=== PATIENT | male | born 1965 | race Caucasian/White ===

== ENCOUNTER 2017-08-14 10:40 | Emergency (ER) | payer BC, OTHER ==
[2017-08-14] MEDS ORDERED: Sodium Chloride 0.9% 10 ML Syringe FLUSH PRN (10:51)
[2017-08-14 11:50] LABS: CHLORIDE,CL 105 mmol/L (98-107); SODIUM,NA 140 mmol/L (136-145)
[2017-08-14] MEDS ORDERED: Ketorolac 30 MG/ML SDV IVPUSH ONE (12:13)
--- NOTE | 2017-08-14 19:17 | EDM.PDOC ---
ED HPI GENERAL MEDICAL PROBLEM - General Chief Complaint: Chest Pain Stated Complaint: CHEST PAIN Time Seen by Provider: 08/14/17 10:49 Source of Information: Reports: Patient History Limitations: Reports: No Limitations - History of Present Illness INITIAL COMMENTS - FREE TEXT/NARRATIVE: Pt. presents to ER with anterior L sided chest pain. Pt. states that this discomfort was rapid on onset and respirophasic in nature. Denies any fever, chills, or dyspnea. He denies any shortness of breath. He states that the discomfort does not radiate elsewhere. He states that he has never experienced discomfort like this in the past. Denies any jaw, arm, neck or back pain. Denies any nausea or vomiting. States that he has not recently had a cough or chest congestion. Denies hemoptysis. Onset: Today Location: Reports: Chest Quality: Reports: Sharp, Stabbing Severity: Moderate Improves with: Reports: Rest Worsens with: Reports: Breathing, Movement Context: Reports: Activity Associated Symptoms: Reports: No Other Symptoms Anterior Chest Pain Score (Numeric/FACES): 1 - Related Data Allergies Allergy/AdvReac Type Severity Reaction Status Date / Time No Known Allergies Allergy Verified 08/14/17 10:51 Home Meds: Home Meds amLODIPine Besylate [Amlodipine Besylate] 5 mg PO DAILY 08/14/17 [History] Past Medical History Cardiovascular History: Reports: Hypertension Social & Family History - Family History Cardiac: Reports: [place] - Tobacco Use Smoking Status *Q: Never Smoker - Recreational Drug Use Recreational Drug Use: No ED ROS GENERAL - Review of Systems Review Of Systems: See Below Constitutional: Reports: No Symptoms HEENT: Reports: No Symptoms Respiratory: Reports: Pleuritic Chest Pain. Denies: Shortness of Breath, Cough , Sputum, Hemoptysis Cardiovascular: Reports: Other (Please see HPI. Pain is respirophasic in nature , located in L upper pectoral area). Denies: Dyspnea on Exertion, Edema, Lightheadedness, Palpitations Endocrine: Reports: No Symptoms GI/Abdominal: Reports: No Symptoms : Reports: No Symptoms Musculoskeletal: Reports: Other (chest pain) Skin: Reports: No Symptoms Neurological: Reports: No Symptoms Psychiatric: Reports: No Symptoms Hematologic/Lymphatic: Reports: No Symptoms Immunologic: Reports: No Symptoms ED EXAM, GENERAL - Physical Exam Exam: See Below Exam Limited By: No Limitations General Appearance: Alert, WD/WN, No Apparent Distress Eye Exam: Bilateral Eye: Normal Fundi, Normal Inspection, PERRL Ears: Normal External Exam, Normal Canal, Hearing Grossly Normal, Normal TMs Ear Exam: Bilateral Ear: Auricle Normal, Canal Normal, TM normal Nose: Normal Inspection, Normal Mucosa, No Blood Throat/Mouth: Normal Inspection, Normal Lips, Normal Teeth, Normal Gums, Normal Oropharynx, Normal Voice, No Airway Compromise Head: Atraumatic, Normocephalic Neck: Normal Inspection, Supple, Non-Tender, Full Range of Motion Respiratory/Chest: No Respiratory Distress, Lungs Clear, Normal Breath Sounds, No Accessory Muscle Use. No: Respiratory Distress, Decreased Breath Sounds, Crackles, Rales, Rhonchi Cardiovascular: Normal Peripheral Pulses, Regular Rate, Rhythm, No Edema, No Gallop, No JVD, No Murmur, No Rub Peripheral Pulses: 2+: Radial (L), Radial (R) GI/Abdominal: Normal Bowel Sounds, Soft, Non-Tender, No Organomegaly, No Distention, No Abnormal Bruit, No Mass (Male) Exam: Deferred Rectal (Males) Exam: Deferred Back Exam: Normal Inspection, Full Range of Motion, NT Extremities: Normal Inspection, Normal Range of Motion, Non-Tender, Normal Capillary Refill, No Pedal Edema Neurological: Alert, Oriented, CN II-XII Intact, Normal Cognition, Normal Gait, Normal Reflexes, No Motor/Sensory Deficits Psychiatric: Normal Affect, Normal Mood Skin Exam: Warm, Dry, Intact, Normal Color, No Rash Lymphatic: No Adenopathy EKG INTERPRETATION Rhythm: NSR [place]: Normal P-Wave: Present QRS: Normal ST-T: Normal QT: Normal Course - Vital Signs Last Recorded V/S: Last Vital Signs Temp 35.2 C L 08/14/17 10:45 Pulse 60 08/14/17 13:15 Resp 16 08/14/17 13:15 BP 124/67 08/14/17 13:15 Pulse Ox 99 08/14/17 13:15 - Orders/Labs/Meds Orders: Active Orders 24 hr Category Date Time Status EKG Documentation Completion [RC] STAT Care 08/14/17 10:51 Active Chest 2V [CR] Stat Exams 08/14/17 10:51 Taken Peripheral IV Insertion Adult [OM.PC] Routine Oth 08/14/17 10:51 Ordered Labs: Laboratory Tests 08/14/17 08/14/17 08/14/17 Range/Units 11:06 11:06 11:06 WBC 8.4 (4.0-10.0) x10^3/uL RBC 4.88 (4.5-6.0) x10^6/uL Hgb 14.4 (14.0-18.0) g/dL Hct 42.5 (40.0-52.0) % MCV 87.1 (78.0-93.0) fL MCH 29.5 (26.0-32.0) pg MCHC 33.9 (32.0-36.0) g/dL RDW Coeff of Tera 13.6 (10.0-15.0) % Plt Count 242 (130-400) x10^3/uL Neut % (Auto) 69.7 (50.0-80.0) % Lymph % (Auto) 21.1 L (25.0-50.0) % [place] % (Auto) 6.4 (2.0-11.0) % Eos % (Auto) 2.6 (0.0-4.0) % Baso % (Auto) 0.2 (0.2-1.2) % PT 9.4 L (9.8-11.8) SEC INR 0.9 L (2.0-3.5) D-Dimer, Quantitative < 0.19 (<=0.58) mg/LFEU Sodium 140 (136-145) mmol/L Potassium 3.7 (3.5-5.1) mmol/L Chloride 105 (98-107) mmol/L Carbon Dioxide 25 (21-32) mmol/L BUN 17 (7-18) mg/dL Creatinine 0.9 (0.70-1.30) mg/dL Est Cr Clr Drug Dosing TNP Estimated GFR (MDRD) > 60 Glucose 114 H (74-106) mg/dL Calcium 8.6 (8.5-10.1) mg/dL Corrected Calcium 8.84 (8.5-10.1) mg/dL Total Bilirubin 0.3 (0.2-1.0) mg/dL AST 15 (15-37) U/L ALT 26 (16-63) U/L Alkaline Phosphatase 78 (46-116) U/L POC Troponin I (0.00-0.08) ng/mL C-Reactive Protein 0.6 (<=0.9) mg/dL NT-Pro-B Natriuret Pep 70 (<=125) pg/mL Total Protein 7.1 (6.4-8.2) g/dL Albumin 3.7 (3.4-5.0) g/dL Globulin 3.4 Albumin/Globulin Ratio 1.09 /05/22 Range/Units 11:09 WBC (4.0-10.0) x10^3/uL RBC (4.5-6.0) x10^6/uL Hgb (14.0-18.0) g/dL Hct (40.0-52.0) % MCV (78.0-93.0) fL MCH (26.0-32.0) pg MCHC (32.0-36.0) g/dL RDW Coeff of Tera (10.0-15.0) % Plt Count (130-400) x10^3/uL Neut % (Auto) (50.0-80.0) % Lymph % (Auto) (25.0-50.0) % [place] % (Auto) (2.0-11.0) % Eos % (Auto) (0.0-4.0) % Baso % (Auto) (0.2-1.2) % PT (9.8-11.8) SEC INR (2.0-3.5) D-Dimer, Quantitative (<=0.58) mg/LFEU Sodium (136-145) mmol/L Potassium (3.5-5.1) mmol/L Chloride (98-107) mmol/L Carbon Dioxide (21-32) mmol/L BUN (7-18) mg/dL Creatinine (0.70-1.30) mg/dL Est Cr Clr Drug Dosing Estimated GFR (MDRD) Glucose (74-106) mg/dL Calcium (8.5-10.1) mg/dL Corrected Calcium (8.5-10.1) mg/dL Total Bilirubin (0.2-1.0) mg/dL AST (15-37) U/L ALT (16-63) U/L Alkaline Phosphatase (46-116) U/L POC Troponin I 0.00 (0.00-0.08) ng/mL C-Reactive Protein (<=0.9) mg/dL NT-Pro-B Natriuret Pep (<=125) pg/mL Total Protein (6.4-8.2) g/dL Albumin (3.4-5.0) g/dL Globulin Albumin/Globulin Ratio Meds: Medications Discontinued Medications Generic Name Dose Route Start Last Admin Trade Name Freq PRN Reason Stop Dose Admin Ketorolac Tromethamine 30 mg 08/14/17 12:13 08/14/17 12:27 Toradol IVPUSH 08/14/17 12:14 30 mg ONETIME ONE Administration Sodium Chloride 10 ml 08/14/17 10:51 Saline Flush FLUSH ASDIRECTED PRN Keep Vein Open Departure - Departure Time of Disposition: 13:15 Disposition: Home, Self-Care 01 Condition: Good Clinical Impression: Atypical chest pain - Discharge Information Instructions: Naproxen and naproxen sodium oral immediate-release tablets, Nonspecific Chest Pain, [id number], Prednisone tablets, Costochondritis Referrals: PCP,None [Primary Care Provider] - Forms: ED Department Discharge Additional Instructions: Home to rest. Prednisone 40mg once daily for 5 days Naproxen 500mg twice daily as needed for chest pain. Return to ER if worsening discomfort, shortness of breath, lightheadedness, or weakness. - My Orders Last 24 Hours: My Active Orders 08/14/17 10:51 EKG Documentation Completion [RC] STAT Chest 2V [CR] Stat Peripheral IV Insertion Adult [OM.PC] Routine - Assessment/Plan Last 24 Hours: My Active Orders 08/14/17 10:51 EKG Documentation Completion [RC] STAT Chest 2V [CR] Stat Peripheral IV Insertion Adult [OM.PC] Routine
== END 2017-08-14 13:15 | disposition home or self-care (01) ==
LOC: VM.ED 10:40
DX: R07.89 Other chest pain (principal); I10 Essential (primary) hypertension; Z79.899 Other long term (current) drug therapy
CPT/HCPCS: 36415; 71046; 80053; 83880; 84484; 85025; 85379; 85610; 86140; 93005; 96374; 99285; J1885

== ENCOUNTER 2023-07-02 20:36 | Emergency (ER) | payer OTHER ==
[2023-07-02 21:39] LABS: CORONAVIRUS COVID-19 NAA NEGATIVE (NEGATIVE); INFLUENZA A NAA NEGATIVE (NEGATIVE); INFLUENZA B NAA NEGATIVE (NEGATIVE); RESPIRATORY SYNCYTIAL VIR NAA NEGATIVE (NEGATIVE)
== END 2023-07-02 22:07 | disposition home or self-care (01) ==
LOC: VM.ED 20:36
DX: J06.9 Acute upper respiratory infection, unspecified (principal); I10 Essential (primary) hypertension; Z79.899 Other long term (current) drug therapy
CPT/HCPCS: 0241U; 99283; 99284

== ENCOUNTER 2024-09-22 22:53 | Emergency (ER) | payer OTHER ==
[2024-09-22] MEDS ORDERED: Sodium Chloride 0.9% 10 ML Syringe FLUSH PRN (23:00)
[2024-09-22] MEDS: Nitroglycerin 0.4 MG Tab.SL SL PRN (23:10)
[2024-09-22 23:26] LABS: BASOPHILS ABSOLUTE AUTO 0.1 x10^3/uL (0.0-0.2); BASOPHILS PERCENT AUTO 0.6 % (0.2-1.2); EOSINOPHILS ABSOLUTE AUTO 0.4 x10^3/uL (0.0-0.5); EOSINOPHILS PERCENT AUTO 5.1 % (0.0-4.0); HEMOGLOBIN 14.5 g/dL (14.0-18.0); IMMATURE GRAN ABSOLUTE AUTO 0.02 x10^3/uL (0.00-0.07); LYMPHOCYTES ABSOLUTE AUTO 1.7 x10^3/uL (1.0-4.8); LYMPHOCYTES PERCENT AUTO 19.7 % (25.0-50.0); MEAN CORPUSCULAR HEMOGLOBIN 29.9 pg (26.0-32.0); MEAN CORPUSCULAR HGB CONC 34.5 g/dL (32.0-36.0); MEAN CORPUSCULAR VOLUME 86.6 fL (78.0-93.0); MONOCYTES ABSOLUTE AUTO 0.6 x10^3/uL (0.0-0.8); MONOCYTES PERCENT AUTO 6.5 % (2.0-11.0); NEUTROPHILS ABSOLUTE AUTO 5.9 x10^3/uL (1.8-7.7); NEUTROPHILS PERCENT AUTO 67.9 % (50.0-80.0); PLATELET COUNT,PLT 229 x10^3/uL (130-400); RED BLOOD CELL COUNT 4.85 x10^6/uL (4.5-6.0); WHITE BLOOD CELL COUNT,WBC 8.7 x10^3/uL (4.0-10.0)
[2024-09-22 23:43] LABS: INR 0.8 (0.9-1.1); PROTHROMBIN TIME 9.1 SEC (9.6-12.0)
[2024-09-22] MEDS: Alum Hydrox/Mag Hydrox/Simeth 30 ML, Lidocaine 2% 15 ML, Promethazine 12.5 MG PO ONE (23:48)
[2024-09-23] MEDS: Sodium Chloride 0.9% 1,000 ML IV ONE (00:11)
[2024-09-23 00:12] LABS: A/G RATIO 1.29; ALANINE AMINOTRANSFERASE,ALT 33 U/L (16-63); ALKALINE PHOSPHATASE 83 U/L (46-116); ASPARTATE AMNIOTRANSFERASE,AST 20 U/L (15-37); BILIRUBIN TOTAL 0.3 mg/dL (0.2-1.0); BLOOD UREA NITROGEN,BUN 16 mg/dL (7-18); CALCIUM 8.9 mg/dL (8.5-10.1); CARBON DIOXIDE,CO2 28 mmol/L (21-32); CHLORIDE,CL 103 mmol/L (98-107); CREATININE 0.9 mg/dL (0.70-1.30); ESTIMATED GFR 99 mL/min (>=60); GLUCOSE RANDOM 99 mg/dL (70-99); MAGNESIUM 2.3 mg/dL (1.8-2.4); PROTEIN TOTAL,TP 7.1 g/dL (6.4-8.2); SODIUM,NA 142 mmol/L (136-145)
[2024-09-23] MEDS: Morphine 4 MG/ML Syringe IVPUSH PRN (00:12)
[2024-09-23] MEDS: Aspirin 81 MG Tab.Chew PO ONE (00:13)
[2024-09-23] MEDS: Ondansetron 4 MG/2 ML SDV IVPUSH ONE (00:14)
[2024-09-23 00:20] LABS: D-DIMER QUANTITATIVE 0.31 mg/LFEU (<=0.58); PTT,PARTIAL THROMBOPLSTIN TIME 22.3 SEC (23.5-33.2)
[2024-09-23 01:51] LABS: LIPASE 40 U/L (19-71)
[2024-09-23] MEDS ORDERED: Nitroglycerin 0.4 MG Tab.SL ONE (03:47)
== END 2024-09-23 02:16 | disposition home or self-care (01) ==
LOC: VM.ED 22:53
DX: R07.9 Chest pain, unspecified (principal); I10 Essential (primary) hypertension
CPT/HCPCS: 36415; 71045; 80053; 83690; 83735; 83880; 84484; 85025; 85379; 85610; 85730; 93005; 93010; 96374; 96375; 99284; 99285; A9270; J2270; J2405; J7030

== ENCOUNTER 2025-02-05 19:46 | Emergency (ER) | payer OTHER ==
[2025-02-05 20:03] LABS: BASOPHILS ABSOLUTE AUTO 0.0 x10^3/uL (0.0-0.2); BASOPHILS PERCENT AUTO 0.2 % (0.2-1.2); EOSINOPHILS ABSOLUTE AUTO 0.4 x10^3/uL (0.0-0.5); EOSINOPHILS PERCENT AUTO 3.0 % (0.0-4.0); IMMATURE GRAN ABSOLUTE AUTO 0.01 x10^3/uL (0.00-0.07); IMMATURE GRAN PERCENT AUTO 0.10 % (0.00-0.43); LYMPHOCYTES ABSOLUTE AUTO 1.9 x10^3/uL (1.0-4.8); LYMPHOCYTES PERCENT AUTO 14.4 % (25.0-50.0); MONOCYTES ABSOLUTE AUTO 0.8 x10^3/uL (0.0-0.8); MONOCYTES PERCENT AUTO 6.2 % (2.0-11.0); NEUTROPHILS ABSOLUTE AUTO 9.8 x10^3/uL (1.8-7.7); NEUTROPHILS PERCENT AUTO 76.1 % (50.0-80.0); PLATELET COUNT,PLT 270 x10^3/uL (130-400); RED BLOOD CELL COUNT 4.92 x10^6/uL (4.5-6.0); WHITE BLOOD CELL COUNT,WBC 12.9 x10^3/uL (4.0-10.0)
[2025-02-05 20:22] LABS: A/G RATIO 1.43; ALANINE AMINOTRANSFERASE,ALT 28.0 U/L (16-63); ASPARTATE AMNIOTRANSFERASE,AST 19.0 U/L (15-37); BILIRUBIN TOTAL 0.7 mg/dL (0.2-1.0); BLOOD UREA NITROGEN,BUN 16.0 mg/dL (7-18); CARBON DIOXIDE,CO2 32.0 mmol/L (21-32); CHLORIDE,CL 101.0 mmol/L (98-107); CREATININE 1.1 mg/dL (0.70-1.30); EST CRCL DRUG DOSING (CG) 82.72 mL/min; GLUCOSE RANDOM 111.0 mg/dL (70-99); POTASSIUM,K 3.7 mmol/L (3.5-5.1); PROTEIN TOTAL,TP 7.3 g/dL (6.4-8.2); SODIUM,NA 142.0 mmol/L (136-145)
[2025-02-05 20:26] LABS: ESTIMATED GFR 78.0 mL/min (>=60)
[2025-02-05] MEDS: Ketorolac 30 MG/ML SDV IVPUSH ONE (20:35)
== END 2025-02-05 21:30 | disposition home or self-care (01) ==
LOC: VM.ED 19:46
DX: J18.9 Pneumonia, unspecified organism (principal); I10 Essential (primary) hypertension; Z79.899 Other long term (current) drug therapy
CPT/HCPCS: 71045; 80053; 84484; 85025; 85379; 93005; 96365; 96375; 99285-25; J1885; J2543